=== PATIENT | male | born 1940 | race Caucasian/White ===

== ENCOUNTER 2023-06-28 13:43 | Emergency (ER) | payer MEDICARE, BC ==
[~2023-06-28] VITALS: Ht 175.3 cm; Wt 69.4 kg
[2023-06-28 16:15] VITALS: BP 130/66; TEMP 98.1; O2SAT 97
== END 2023-06-28 16:40 | disposition home or self-care (01) ==
LOC: ER 13:45
DX: S51.812A Laceration without foreign body of left forearm, initial encounter (principal); S00.83XA Contusion of other part of head, initial encounter; W01.0XXA Fall on same level from slipping, tripping and stumbling without subsequent striking against object, initial encounter; Y93.89 Activity, other specified; Y92.89 Other specified places as the place of occurrence of the external cause; Y99.8 Other external cause status
CPT/HCPCS: 99284; 72125; 70450; A6403